=== PATIENT | female | born 1995 | race Caucasian/White ===

== ENCOUNTER 2017-02-18 08:13 | Emergency (ER) | payer BC ==
[~2017-02-18] VITALS: Ht 165.1 cm; Wt 62.5 kg
[~2017-02-18 08:13] MED LIST: SPR28 PO; ZLF50 PO
[2017-02-18 08:19] VITALS: Ht 165.1 cm; Wt 62.5 kg
[2017-02-18] MEDS ORDERED: KETOROLAC TROMETHAMINE 30 MG/ML VIAL IV STA (08:57)
[2017-02-18] MEDS ORDERED: SODIUM CHLORIDE 0.9% 1000ML 2,000 ML IV STA (08:57)
[2017-02-18] MEDS ORDERED: ONDANSETRON INJ 2 MG/ML 2 ML VIAL IV STA (08:57)
[2017-02-18] MEDS ORDERED: AMPICILLIN/SULBACTAM SOD INJ 3,000 MG in SODIUM CHLORIDE 0.9% 100ML 100 ML IV ONE (09:00)
[2017-02-18] MEDS ORDERED: DEXAMETHASONE SOD INJ 10 MG/ML VIAL IV ONE (09:00)
[2017-02-18 09:13] LABS: HEMATOCRIT 37.4 % (37-47); MEAN CORPUSCULAR HGB CONC 32.6 g/dl (32-36); MEAN PLATELET VOLUME 9.7 fL (7.4-10.4); PLATELET COUNT 414 K/uL (130-400); RED BLOOD COUNT 4.35 M/uL (4.2-5.4); WHITE BLOOD COUNT 23.36 K/uL (4.8-10.8)
[2017-02-18 09:26] LABS: BUN/CREATININE RATIO 9.7 (10-20); CALCIUM 9.3 mg/dl (8.5-10.1); POTASSIUM 3.6 mmol/L (3.5-5.1)
[2017-02-18 09:29] LABS: ALB/GLOB RATIO 0.7 (0.9-2)
[2017-02-18 09:31] LABS: BASO % 0.1 %; BASO ABS # 0.03 K/uL (0-0.2); COMPLETE YES; EOS % 0.1 %; IG% 0.4 %; LYMPH % 3.8 %; LYMPH ABS # 0.88 K/uL (1.2-3.4); MONO % 3.7 %; NEUT % 91.9 %
[2017-02-18] MEDS ORDERED: BCPILLS PO (09:33)
[2017-02-18 09:57] LABS: PREG INTERNAL NEGATIVE QC NEG CLEAR BACKGROUND; PREG INTERNAL POSITIVE QC POS CONTROL LINE
[2017-02-18 11:05] VITALS: TEMP 37.2
[2017-02-18] MEDS ORDERED: AMOX875T PO (11:32)
[2017-02-18] MEDS ORDERED: METH4PAK PO (11:32)
[2017-02-18] MEDS ORDERED: ONDA4TAB10 SL (11:32)
[2017-02-18] MEDS ORDERED: HYDR-5688 PO (11:32)
--- NOTE | 2017-02-18 11:35 | EMERGENCY ROOM VISIT NOTE ---
ED Visit Note First contact with patient: 08:28 CHIEF COMPLAINT: Sore throat 1 week HISTORY OF PRESENT ILLNESS: Patient is a 21-year-old white female who presents emergency department for evaluation of congestion and sore throat times one week , also with associated fever, nausea and vomiting that started yesterday. Patient reports mild nasal congestion and a sore throat for about a week. She states that her symptoms were manageable until yesterday when she became subjectively feverish, and had chills. She reports that she was up all night feeling nauseous. She had vomiting and diarrhea, she estimates roughly 4-5 episodes of each, last was about 4 hours ago. She denies any abdominal pain. She notes slightly worse pain on the right side of her throat than the left. She did not record her temperature with a thermometer. She took ibuprofen and aspirin this morning for pain and fever. She is able to swallow liquids and her own saliva but it is painful. No rash. Denies any posterior neck pain or stiffness. No difficulty breathing. Symptoms came on gradually. She reports an illness similar to this last year at this time. REVIEW OF SYSTEMS: Review of systems as per HPI. All other systems reviewed were negative. 10 systems reviewed. PMH: Electronic medical records are reviewed and summarized as above/below. See Problem List. SOCIAL HISTORY: Patient is a college student who lives in an apartment. She does not smoke. PHYSICAL EXAM: Vital Signs: Reviewed Nurse's notes. Temperature 37.6C orally. She is mildly tachycardic. MENTAL STATUS: Alert and cooperative. Nontoxic appearing. HEAD: Atraumatic, without temporal or scalp tenderness. EYES: PERRL, EOMI, no discharge or injection. EARS: Tympanic membranes intact, not inflamed, have normal contour. External canals clear. NOSE: Nares patent, turbinates moist without rhinorrhea. MOUTH: Mucous membranes moist, no lesions, tongue and gums appear normal. THROAT: Examination of the posterior pharynx shows the tonsils to be erythematous, and swollen bilaterally, right slightly worse than left, with exudate noted. No trismus is noted. Uvula is midline. Airway is patent. NECK: Supple, nontender, cervical chain lymphadenopathy noted bilaterally. HEART: Regular rate and rhythm without murmurs, ectopy, gallops, or rubs. LUNGS: Clear to auscultation and breath sounds equal, no wheezes, rales, or rhonchi. ABDOMEN: Bowel sounds are present. Abdomen is soft, nontender and nondistended. No guarding or rebound. SKIN: Normal. NEUROLOGICAL: Sensory and motor functions grossly intact. Normal gait. ED course: The patient was seen and evaluated as above. IV lock was initiated. She was hydrated with normal saline solution. She was medicated with Toradol 30 mg, Decadron 10 mg, Zofran 4 mg and Unasyn 3 g IV. Laboratory studies including CBC with differential, CMP, lipase, Monospot, urine dip and were obtained. Laboratory studies did note a white count of 23,300. It was left shift and bands noted. H&H is normal. I suspect this is likely related to her illness, and in addition to the stress of vomiting and diarrhea. Electrolytes are within normal limits. Renal function is normal. Transaminases are not elevated. Lipase is not indicative of acute pancreatitis. Urine dip noted ketones, no other indicators for infection. Urine test was negative. Monospot was negative. The patient was reassessed frequently. She rested comfortably. After being medicated, she defervesced, temperature discharge was 37.2C orally. Tachycardia improved with fever management, and with hydration. The patient has an exudative tonsillitis. The right is slightly worse than the left, but she does not have any trismus or uvular deviation, and well early peritonsillar abscess was entertained, her physical exam is not consistent with this at this time. She was still treated as such, with anti-inflammatories, steroids and antibiotics. She does not have any nuchal rigidity to suspect meningitis. Mononucleosis was also entertained, Monospot testing was negative at this time. Conservative care measures were discussed with the patient. She reportedly feel much improved after the IV hydration. She rated her pain a 0/10 at discharge. She will be placed on Augmentin and a Medrol Dosepak. She was also given [place] and Zofran that she can use as needed. Fever/pain management using ibuprofen and acetaminophen was also discussed. The patient was educated on the worrisome signs or symptoms for which she should return to the emergency department. Otherwise she should follow-up with [facility] later this week for recheck. Patient was discharged home with a female friend in good condition. Vital signs were stable at that time. Medication reconciliation: I attest that I have personally reviewed the patient' s current medication list. Blood pressure screening : Patient was found to have normal blood pressure on screening and does not require follow-up. Patient was reviewed in the [facility] Prescription Drug Monitoring Program, and there were no red flags noted. Problem List Medical Problems: (1) Anxiety Status: Chronic (2) Depression Status: Chronic (3) Exudative tonsillitis Status: Resolved (4) Mood disorder Status: Resolved (5) Nausea & vomiting Status: Resolved (6) Suicidal ideation Status: Resolved Surgical Problems: (1) H/O wisdom tooth extraction Status: Resolved Current/Historical Medications Scheduled Amoxicillin & Pot Clavulanate (Augmentin 875-125 mg), 1 TAB PO BID Control Pills ( Control Pills), 1 TAB PO DAILY Methylprednisolone (Medrol Dosepak), 0 PO DAILY Scheduled PRN Hydrocodone/Acetaminophen 5MG/325MG ([place] 5MG/325MG), 1-2 TABLETS PO Q4 PRN for Pain Ondasetron Odt (Zofran Odt), 4 MG SL Q6H PRN for Nausea or Vomiting Allergies Coded Allergies: No Known Allergies (Unverified , 02/18/17) Vital Signs Date Time Temp Pulse Resp B/P (MAP) Pulse Ox O2 Delivery O2 Flow Rate FiO2 02/18/17 11:40 90 18 118/73 97 02/18/17 11:05 37.2 112 18 112/71 97 Room Air 02/18/17 09:50 37.4 118 18 124/76 97 Room Air 02/18/17 08:19 37.6 116 20 114/64 99 Room Air Laboratory Results 02/18/17 08:30 Red Blood Count 4.35, Mean Corpuscular Volume 86.0, Mean Corpuscular Hemoglobin 28.0, Mean Corpuscular Hemoglobin Concent 32.6, Mean Platelet Volume 9.7, Neutrophils (%) (Auto) 91.9, Lymphocytes (%) (Auto) 3.8, Monocytes (%) (Auto) 3.7, Eosinophils (%) (Auto) 0.1, Basophils (%) (Auto) 0.1, Neutrophils # (Auto) 21.47, Lymphocytes # (Auto) 0.88, Monocytes # (Auto) 0.86, Eosinophils # (Auto) 0.03, Basophils # (Auto) 0.03 02/18/17 08:30 Test 02/18/17 08:30 02/18/17 09:00 White Blood Count 23.36 K/uL (4.8-10.8) Red Blood Count 4.35 M/uL (4.2-5.4) Hemoglobin 12.2 g/dL (12.0-16.0) Hematocrit 37.4 % (37-47) Mean Corpuscular Volume 86.0 fL (80-100) Mean Corpuscular Hemoglobin 28.0 pg (25-34) Mean Corpuscular Hemoglobin Concent 32.6 g/dl (32-36) Platelet Count 414 K/uL (130-400) Mean Platelet Volume 9.7 fL (7.4-10.4) Neutrophils (%) (Auto) 91.9 % Lymphocytes (%) (Auto) 3.8 % Monocytes (%) (Auto) 3.7 % Eosinophils (%) (Auto) 0.1 % Basophils (%) (Auto) 0.1 % Neutrophils # (Auto) 21.47 K/uL (1.4-6.5) Lymphocytes # (Auto) 0.88 K/uL (1.2-3.4) Monocytes # (Auto) 0.86 K/uL (0.11-0.59) Eosinophils # (Auto) 0.03 K/uL (0-0.5) Basophils # (Auto) 0.03 K/uL (0-0.2) RDW Standard Deviation 42.4 fL (36.4-46.3) RDW Coefficient of Variation 13.5 % (11.5-14.5) Immature Granulocyte % (Auto) 0.4 % Immature Granulocyte # (Auto) 0.09 K/uL (0.00-0.02) Anion Gap 8.0 mmol/L (3-11) Est Creatinine Clear Calc Drug Dose 80.1 ml/min Estimated GFR () 93.3 Estimated GFR (Non- 80.5 BUN/Creatinine Ratio 9.7 (10-20) Calcium Level 9.3 mg/dl (8.5-10.1) Total Bilirubin 0.2 mg/dl (0.2-1) Aspartate Amino Transf (AST/SGOT) 18 U/L (15-37) Alanine Aminotransferase (ALT/SGPT) 11 U/L (12-78) Alkaline Phosphatase 87 U/L (45-117) Total Protein 8.8 gm/dl (6.4-8.2) Albumin 3.7 gm/dl (3.4-5.0) Globulin 5.1 gm/dl (2.5-4.0) Albumin/Globulin Ratio 0.7 (0.9-2) Lipase 163 U/L (73-393) Monoscreen NEG (NEG) Urine Test NEG (NEG) Medications Administered Medications (Trade) Dose Ordered Sig/Jac Route Start Time Stop Time Status Last Admin Dose Admin Sodium Chloride 2,000 ml @ 999 mls/hr Q2H1M STAT IV 02/18/17 08:57 02/18/17 10:57 DC 02/18/17 09:08 999 MLS/HR Ketorolac Tromethamine (Toradol Inj) 30 mg NOW STAT IV 02/18/17 08:57 02/18/17 09:00 DC 02/18/17 09:09 30 MG Dexamethasone Sodium Phosphate (Decadron Inj) 10 mg NOW ONCE IV 02/18/17 09:00 02/18/17 09:01 DC 02/18/17 09:08 10 MG Ampicillin Sodium/ Sulbactam Sodium 3000 mg/Sodium Chloride 108 ml @ 200 mls/hr ONE ONCE IV 02/18/17 09:00 02/18/17 09:32 DC 02/18/17 09:09 200 MLS/HR Ondansetron HCl (Zofran Inj) 4 mg NOW STAT IV 02/18/17 08:57 02/18/17 09:00 DC 02/18/17 09:08 4 MG Departure Information Impression Primary Impression: Exudative tonsillitis Prescriptions Methylprednisolone (MEDROL DOSEPAK) 4 Mg Daniel 0 PO DAILY, #1 PKT ONCE DAILY DIRECTED Prov: Gabrielle Willis PA 02/18/17 Hydrocodone/Acetaminophen 5MG/325MG ([place] 5MG/325MG) Tab 1-2 TABLETS PO Q4 Y for Pain, #15 TAB For Initial Treatment Prov: Gabrielle Willis PA 02/18/17 Ondasetron Odt (ZOFRAN ODT) 4 Mg Tab 4 MG SL Q6H Y for Nausea or Vomiting, #20 TAB Prov: Gabrielle Willis PA 02/18/17 Amoxicillin & Pot Clavulanate (Augmentin 875-125 mg) 1 Tab Tab 1 TAB PO BID, #20 TAB Prov: Gabrielle Willis PA 02/18/17 Referrals No Doctor, Assigned (PCP) Patient Instructions My [facility] Additional Instructions Amoxicillin Clavulanate (Augmentin) 875mg: Take one pill twice daily for 10 days for your infection. All antibiotics can cause diarrhea. If this occurs and you feel worse or it does not resolve in 1-2 days follow up with your doctor or return to the Emergency Department as this could be signs of serious underlying problems. Any medication can cause an allergic reaction, stop the pills immediately and return to the ER for rash, hives, breathing difficulties, or swelling. Medrol Dosepak: Once daily until the prescription is finished. It is best to take this earlier in the day as some patients note occasional difficulty falling asleep when taken in the late evening. Hydrocodone/Acetaminophen ([place]) 5/325 mg: Take 1-2 pills every four hours for breakthrough pain. Avoid alcohol, operating machinery or dangerous equipment, working on ladders or roofs, DRIVING, or situations where being under the influence may be dangerous. It is recommended to use an [id number] stool softener such as Colace, 100mg twice daily while taking this medication to avoid constipation. Zofran(odansetron) tablets 4mg: Take one and allow it to dissolve in your mouth every four to six hours as needed for nausea or vomiting. Ibuprofen(Motrin, Advil) may be used for fever or pain. Use 600mg every six hours as needed. Take with food. Avoid using more than 2400mg in a 24 hour period. Do not use 2400mg per day for more than three consecutive days without physician direction. Prolonged inappropriate use can lead to stomach upset or ulcers. This is available over the counter and typically comes in 200mg tablets. (AND/OR) Acetaminophen(Tylenol) may be used for fever or pain. Use 1000mg every eight hours as needed. Avoid using more than 3000mg in a 24 hour period. This is available over the counter. Read all the package inserts or medication information paperwork provided. If you have any questions or concerns call your primary provider, pharmacist or the ER for assistance. Salt water gargles. Liquid/soft diet. May advance as tolerated. Rest and drink plenty of fluids. Continue current medications. Return to the ER for worsening throat pain, persistent fevers, ongoing vomiting , worsening symptoms any other concerns. Follow up with S within 2-3 days for a recheck of the current condition.
[2017-02-18 11:40] VITALS: BP 118/73; PULSE 90; O2SAT 97
== END 2017-02-18 11:56 | disposition home or self-care (01) ==
LOC: C.EDB 08:14 → C.EDA 11:56
DX: J03.90 Acute tonsillitis, unspecified (principal); F41.9 Anxiety disorder, unspecified; F32.9 Major depressive disorder, single episode, unspecified; Z79.3 Long term (current) use of hormonal contraceptives